=== PATIENT | female | born 1990 | race Caucasian/White ===

== ENCOUNTER 2023-07-25 16:22 | Emergency (ER) | payer BC, SELFPAY ==
[2023-07-25 16:33] VITALS: BP 155/100
--- NOTE | 2023-07-25 18:38 | ED.GENMED ---
History of Present Illness
General
Chief Complaint: DVT/Possible Blood Clot
Time Seen by Provider: 07/25/23 17:29
Travel History
Have you had any contact with someone who has COVID-19?: No
Do you have any symptoms of coronavirus? Fever > 100 degrees, chills, cough, shortness of breath, sore throat, loss of taste or smell, muscle aches, or headache?: No
History of Present Illness
History of Present Illness:
33-year-old female presents the emergency department for evaluation of right calf discomfort that began this morning. She is 5 days . Her pain feels like cramping. Her OB provider advised her to come to the ER to rule out a DVT due to
the fact that she was induced for preeclampsia.
Past History
Past History
ED Past Medical History: None
Social History
Living: with family
Review of Systems
Review of Systems
Allergies reviewed?: Yes
All Other Systems: ROS reviewed and negative except as documented in HPI and ROS
Phy Exam
Physical Exam
Physical Exam:
GEN: Well appearing, NAD, WDWN
HEENT: Oral mucosa moist, no scleral icterus
Cardiac: Regular rate
Lung: No respiratory distress, no tachypnea
MSK: No gross deformity or injuries. Right calf is nontender without edema
Skin: Good color, no pallor or jaundice, no rashes
Neuro: AO x3, moves all extremities freely
Psych: Calm, cooperative
Course
Orders/Labs/Results
Orders:
Orders
07/25/23 16:35
US Legs, Right [US Periph Venous LOWER Ext RT] Urgent
Comment:
Reason For Exam: calf pain
Vital Signs
Initial and Last Documented VS:
Initial Vital Signs
Temp Pulse Resp BP Pulse Ox
98.1 F 98 19 155/100 99
07/25/23 16:33 07/25/23 16:33 07/25/23 16:33 07/25/23 16:33 07/25/23 16:33
Last Documented Vital Signs
Temp Pulse Resp BP Pulse Ox
98.1 F 98 19 155/100 98
07/25/23 16:33 07/25/23 16:33 07/25/23 16:33 07/25/23 16:33 07/25/23 18:12
MDM/Problems Addressed
MDM/Problems Addressed:
No evidence for DVT on imaging, likely musculoskeletal in nature
*Critical Care Note
Total Time (30-74mins, 75-104mins- exclusive of procedures): Not Applicable
ED Attending Note
-
Portions of this chart may have been created with voice recognition software.� Occasional wrong word or��sound alike� substitutions may have occurred due to the inherent limitations of voice recognition software.
Discharge Plan
Departure
Patient Disposition: Home (Routine Discharge)
Date of Disposition: 07/25/23
Time of Disposition: 18:39
Patient with high blood pressure during this ER visit?: No
Discharge Problem:
Pain of right calf
Instructions: Muscle and Bone Pain (DC)
Prescriptions:
No Action
Vitamin Tablet
1 tab PO DAILY
ibuprofen 600 MG tablet
600 mg PO Q4HPRN PRN (Reason: moderate pain/cramps) 0RF
Referrals:
Kerline Lutz PA-C [Family Provider] -
Interventions
Interventions:
*Risk Screen - Suicide Last Done: 07/25/23 18:12
*General Assessment Last Done: 07/25/23 18:12
*Neglect/Abuse Screening Last Done: 07/25/23 18:12
*ED COVID-19 Vaccine History Last Done: 07/25/23 16:34
ED- Cardiac Assessment Last Done: 07/25/23 18:12
ED- Pulmonary Assessment Last Done: 07/25/23 18:12
ED-Peripheral Vascular Assessment Last Done: 07/25/23 18:15
ED-Skin Assessment Last Done: 07/25/23 18:15
Discharge Date and Time
Print Language: UGANDAN
== END 2023-07-25 18:47 | disposition home or self-care (01) ==
LOC: EMR 16:22
PROVIDERS: EMERGENCY PHYSICIAN Student in an Organized Health Care Education/Training Program; FAMILY PHYSICIAN Physician Assistant Medical
DX: M79.661 Pain in right lower leg (principal)
CPT/HCPCS: 99284; 93971

== ENCOUNTER 2023-09-26 10:17 | Emergency (ER) | payer BC, SELFPAY ==
[2023-09-26 10:20] VITALS: BP 137/85
--- NOTE | 2023-09-26 11:05 | ED.GENMED ---
History of Present Illness
<Karlene Gomez PA-C - Last Filed: 09/26/23 16:19>
General
Chief Complaint: Blood Pressure Problem
Source: patient
Exam Limitations: none
Time Seen by Provider: 09/26/23 11:04
Nursing documentation reviewed up to this point in time: agreed with
Travel History
Have you had any contact with someone who has COVID-19?: No
Do you have any symptoms of coronavirus? Fever > 100 degrees, chills, cough, shortness of breath, sore throat, loss of taste or smell, muscle aches, or headache?: No
History of Present Illness
History of Present Illness:
This is a 33 y/o female with a PMH of preeclampsia presenting to the ER today with concerns of high blood pressure and a variety of symptoms. Patient reports that during her she had preeclampsia and she is currently 10 weeks .
Patient states that she was on a regimen of Procardia 30 mg once daily and labetalol 200 twice daily. She sees a audio visual design engineer via telehealth for this and states that recently only over the past few weeks her blood pressure has been well-controlled
and so they started to take her off her labetalol. Then, 2 days ago, she states that the labetalol and she started to feel flushed, and would get on and off headaches. She checked her blood pressure and noticed that systolically which she was in
the 150s which is very high for her. She subsequently took labetalol and states that her symptoms resolved. Patient called her audio visual design engineer again regarding these blood pressure issues and she is advised to take the labetalol now as needed.
Patient presents today because currently she Intermed her blood pressure but also she has just been having symptomatic symptoms recently not feeling like herself. She reports that occasionally she will get twinges of chest pain, and she will have a
persistent left shoulder pain that radiates down the arm. Patient states that while she sees a audio visual design engineer online for blood pressure management, she is never had an EKG done.
Past History
<Karlene Gomez PA-C - Last Filed: 09/26/23 16:19>
Past History
ED Past Medical History: None
Social History
Living: with family
Review of Systems
<ADAIR Hull Last Filed: 09/26/23 16:19>
Review of Systems
All Other Systems: ROS reviewed and negative except as documented in HPI and ROS
Phy Exam
<ADAIR Hull Last Filed: 09/26/23 16:19>
Physical Exam
Physical Exam:
General: Patient is well appearing and in no acute distress; non-toxic
Skin: Warm and dry, no rashes or lesions
Head: Normocephalic, atraumatic
Eyes: Sclera non-icteric. EOMs intact. PERRLA.
Cardiac: Regular rate and rhythm, 2+ systolic ejection murmur noted
Peripheral Vascular: No lower extremity swelling or edema
Pulm: Normal respiratory effort, no wheezes, rales, rhonchi
Abdomen: No abdominal tenderness to palpate
Musculoskeletal: No tenderness palpation of the external chest wall, no tenderness palpation of the left shoulder, full range of motion of bilateral upper extremities
Neuro: CN II-XII intact, no focal neurologic deficits.
Psychiatric: Appropriate mood and affect.
Course
<ADAIR Hull Last Filed: 09/26/23 16:19>
Orders/Labs/Results
Orders:
Orders
09/26/23 11:31
Electrocardiogram (*1) Urgent
Reason for Study: Chest Pain
EKG- Treatment ONCE
09/26/23 11:43
Complete Blood Count/With Diff Urgent
Comprehensive Metabolic Panel Urgent
Troponin I Urgent
Abnormal Lab Results
09/26/23
11:43
Absolute Neuts (auto) 7.2 H 10^3/uL
(1.4-6.5)
Absolute Monos (auto) 0.7 H 10^3/uL
(0.1-0.6)
Neutrophils % 76.8 H %
(42.2-75.2)
Lymphocytes % 14.1 L %
(20.5-51.1)
Glucose 119 H mg/dl
(70-99)
AST 38 H U/L
(14-36)
ALT 49 H U/L
(0-35)
09/26/23 11:43
09/26/23 11:43
Vital Signs
Initial and Last Documented VS:
Initial Vital Signs
Temp Pulse Resp BP Pulse Ox
98.4 F 78 18 137/85 98
09/26/23 10:20 09/26/23 10:20 09/26/23 10:20 09/26/23 10:20 09/26/23 10:20
Last Documented Vital Signs
Temp Pulse Resp BP Pulse Ox
98.4 F 83 18 149/91 99
09/26/23 10:20 09/26/23 12:21 09/26/23 10:20 09/26/23 12:21 09/26/23 12:21
<Elbert Eldridge, DO - Last Filed: 09/29/23 05:09>
Orders/Labs/Results
Orders:
Orders
09/26/23 11:31
Electrocardiogram (*1) Urgent
Reason for Study: Chest Pain
EKG- Treatment ONCE
09/26/23 11:43
Complete Blood Count/With Diff Urgent
Comprehensive Metabolic Panel Urgent
Troponin I Urgent
Abnormal Lab Results
09/26/23
11:43
Absolute Neuts (auto) 7.2 H 10^3/uL
(1.4-6.5)
Absolute Monos (auto) 0.7 H 10^3/uL
(0.1-0.6)
Neutrophils % 76.8 H %
(42.2-75.2)
Lymphocytes % 14.1 L %
(20.5-51.1)
Glucose 119 H mg/dl
(70-99)
AST 38 H U/L
(14-36)
ALT 49 H U/L
(0-35)
09/26/23 11:43
09/26/23 11:43
Vital Signs
Initial and Last Documented VS:
Initial Vital Signs
Temp Pulse Resp BP Pulse Ox
98.4 F 78 18 137/85 98
09/26/23 10:20 09/26/23 10:20 09/26/23 10:20 09/26/23 10:20 09/26/23 10:20
Last Documented Vital Signs
Temp Pulse Resp BP Pulse Ox
98.4 F 83 18 149/91 99
09/26/23 10:20 09/26/23 12:21 09/26/23 10:20 09/26/23 12:21 09/26/23 12:21
Shayelt;Karlene Gomez PA-C - Last Filed: 09/26/23 16:19>
MDM/Problems Addressed
Differential Diagnosis Includes:
ddx include essential hypertension, generalized anxiety disorder, ACS, costochondritis, musculoskeletal sprain/strain
MDM/Problems Addressed:
High blood pressure, chest discomfort:
This is a 33 y/o female with a PMH of preeclampsia presenting to the ER today with concerns of high blood pressure and a variety of symptoms. Patient reports that during her she had preeclampsia and she is currently 10 weeks .
She complains of high blood pressure as of recently along with episodes of chest discomfort. Patient originally on a regimen of Procardia and labetalol twice daily. Patient states that her blood pressure was well-controlled and so she was taken
down by her audio visual design engineer Dr. Ragland to just Procardia. Patient is to have some flushing and headache, noticed blood pressure was higher and added labetalol back on and this made her feel a lot better. Considering patient had chest discomfort, lab
work was done troponin was ordered, troponin is not elevated, no need to repeat considering her persistence many weeks of symptoms. AST and ALT slightly elevated. EKG demonstrates normal sinus rhythm with no ischemic changes. We touch base with
patient audio visual design engineer, in light of new murmur of unknown age, we will have her follow-up with her audio visual design engineer
Chronic conditions affecting care:
Preeclampsia, hypertension
Acute Exacerbation and/or Progression of Chronic Illness:
Preeclampsia, hypertension
<Karlene Gomez PA-C - Last Filed: 09/26/23 16:19>
*Pulse Oximetry
Patient hypoxic: no
*Critical Care Note
Total Time (30-74mins, 75-104mins- exclusive of procedures): Not Applicable
Data Reviewed
Source: patient and records
<Karlene Gomez PA-C - Last Filed: 09/26/23 16:19>
Patient Management
Discussion with other providers: Integrated Logistics Support Manager
Escalation/DeEscalation of care consider admission/obs:
admission indicated
<Elbert Eldridge, DO - Last Filed: 09/29/23 05:09>
Patient Management
Discussion with other providers: Integrated Logistics Support Manager (Cardiology, Dr. Ragland's advanced practice provider)
<Karlene Gomez PA-C - Last Filed: 09/26/23 16:19>
Update Note
Update Note:
1:15 pm-- We spoke to patient's audio visual design engineer, Dr. Ragland on the phone who is aware of patient's new murmur and will call patient to schedule in person follow up
ED Attending Note
<Karlene Gomez PA-C - Last Filed: 09/26/23 16:19>
-
Portions of this chart may have been created with voice recognition software.� Occasional wrong word or��sound alike� substitutions may have occurred due to the inherent limitations of voice recognition software.
<Elbert Eldridge, DO - Last Filed: 09/29/23 05:09>
ED Attending Note
Patient seen and examined by attending physician: Yes
I performed a history and physical exam of patient and discussed management with resident, I reviewed resident's note and agree with documented findings and plan of care.: Yes
ED Attending Note:
I have reviewed and agree with history and treatment plan by Karlene Gomez. My exam reveals
Physical Exam
General: no apparent distress, not acutely ill
Neck: supple. no meningeal signs. normal posterior pharynx
Heart: s1/s2 regular rate and rhythm, systolic ejection murmur 2/6. equal radial
pulses.
HEENT: Pupils equal round reactive to light, EOMI
Lungs: no acute respiratory distress. clear bilaterally
Abdomen: normal bowel sounds. not tender. no CVAT
Neuro: alert and oriented. no focal neurological deficits cranial nerves II through XII intact
Skin: no rash
Psychiatric: well kept. interactive and cooperative
Extremities: no edema. no calf tenderness. negative homans. good distal pulses
Discussed with cardiology, Dr. Ragland's PA, who will arrange follow-up and likely echo.
Discharge Plan
Departure
Patient Disposition: Home (Routine Discharge)
Date of Disposition: 09/26/23
Time of Disposition: 13:25
Patient with high blood pressure during this ER visit?: Yes
Condition: Good
Discharge Problem:
High blood pressure, Systolic ejection murmur
Instructions: Heart murmurs, High Blood Pressure (DC)
Prescriptions:
No Action
Vitamin Tablet
1 tab PO DAILY
ibuprofen 600 MG tablet
600 mg PO Q4HPRN PRN (Reason: moderate pain/cramps) 0RF
Referrals:
Kerline Lutz PA-C [Family Provider] -
Activity Restrictions/Additional Instructions:
You should get a call from Dr. Ragland's office within the next few days. If you do not receive a call, please call his office to schedule follow-up appointment.
Please continue Procardia 30 mg once daily. Please resume labetalol twice daily.
Please return return to the emergency department should you experience chest pain, shortness of breath, syncopal episodes, unrelenting headaches, intractable vomiting, or any other signs or symptoms concerning to you.
Please follow-up with your primary care provider.
Interventions
Interventions:
*Risk Screen - Suicide Last Done: 09/26/23 10:23
*General Assessment Last Done: 09/26/23 10:23
*Neglect/Abuse Screening Last Done: 09/26/23 10:23
ED- Fall Risk Assessment Last Done: 09/26/23 10:49
*ED COVID-19 Vaccine History Last Done: 09/26/23 11:18
*Nursing Disposition Last Done: 09/26/23 13:32
ED- Cardiac Assessment Last Done: 09/26/23 13:17
ED- Neurological Assessment Last Done: 09/26/23 10:49
ED- Pulmonary Assessment Last Done: 09/26/23 10:49
Discharge Date and Time
Discharge Date/Time: 09/26/23 13:32
Print Language: IRISH
[2023-09-26 11:48] LABS: % Basophils 0.3 % (0-2); % Eosinophils 1.2 % (0-6); % Immature Granulocytes 0.3 % (0-0.5); % Lymphocytes 14.1 % (20.5-51.1); % Monocytes 7.3 % (1.7-9.3); % Neutrophils 76.8 % (42.2-75.2); Absolute Eosinophils 0.1 10^3/uL (0-0.7); Absolute Lymphocytes 1.3 10^3/uL (1.2-3.4); Absolute Monocytes 0.7 10^3/uL (0.1-0.6); Absolute Neutrophils 7.2 10^3/uL (1.4-6.5); Hematocrit 39.1 % (37.0-47.0); Mean Corp Hgb Conc. 33.2 g/dL (33.0-37.0); Mean Corpuscular Hgb 27.8 pg (27.0-31.0); Mean Corpuscular Volume 83.7 fL (81.0-99.0); Mean Platelet Volume 9.1 fL (7.4-10.4); Nucleated Red Blood Cells % 0 %; Platelet Count 318 10^3/uL (130-400); Red Blood Cell Count 4.67 10^6/uL (4.20-5.40); Red Cell Dist. Width 13.6 % (11.5-14.5); White Blood Cell Count 9.4 10^3/uL (4.8-10.8)
[2023-09-26 12:03] LABS: ALT (SGPT) 49 U/L (0-35); AST (SGOT) 38 U/L (14-36); Albumin 4.4 g/dl (3.5-5.0); Alkaline Phosphatase 81 U/L (38-126); Blood Urea Nitrogen 10 mg/dl (7-17); Calcium 9.9 mg/dl (8.4-10.2); Carbon Dioxide 28 mmol/L (22-30); Chloride 106 mmol/L (98-107); Glucose 119 mg/dl (70-99); Potassium 4.6 mmol/L (3.5-5.1); Sodium 142 mmol/L (135-145); Total Bilirubin 0.6 mg/dl (0.2-1.3); Total Protein 7.6 g/dl (6.3-8.2); eGFR > 60.00
[2023-09-26 12:13] LABS: Troponin I < 0.012 ng/ml
[2023-09-26 12:21] VITALS: BP 149/91
== END 2023-09-26 13:32 | disposition home or self-care (01) ==
LOC: EMR 10:17
PROVIDERS: Physician Assistant; EMERGENCY PHYSICIAN Emergency Medicine; FAMILY PHYSICIAN Physician Assistant Medical
DX: I10 Essential (primary) hypertension (principal); R01.1 Cardiac murmur, unspecified; Z79.899 Other long term (current) drug therapy
CPT/HCPCS: 99283; 80053; 84484; 85025; 93005